=== PATIENT | male | born 1945 | race Caucasian/White ===

== ENCOUNTER 2019-03-10 12:22 | Inpatient (IN) ==
[2019-03-10] MEDS ORDERED: Famotidine 20 MG/2 ML VIAL IVP ONE (12:23)
[2019-03-10] MEDS ORDERED: Pregabalin 75 MG CAPSULE PO ONE (12:24)
[2019-03-10] MEDS ORDERED: Acetaminophen IV 1,000 MG/100 ML INFUS..BTL IVPB ONE (12:24)
[2019-03-10] MEDS ORDERED: Ringers Solution, Lactated 1,000 ML IVC SCH ×2 (12:30→17:58)
[2019-03-10] MEDS ORDERED: Albuterol 2.5 MG/3 ML NEBULIZER IH ONE (12:43)
[2019-03-10] MEDS ORDERED: CeFAZolin Syr 2,000MG/20 ML 2,000 MG/20 ML SYRINGE IVPB ONE (12:43)
[2019-03-10] MEDS ORDERED: Celecoxib 100 MG CAPSULE PO ONE (12:58)
--- NOTE | 2019-03-10 13:01 | Anesthesia Evaluation PreOp ---
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: Other (Spinal Fusion) Other Medical History: Other (Depression Osteoarthritis) Anesthesia History: No Prior Anesthetic Complications Alcohol Use: none Drug use: none Medications and Allergies Atorvastatin [Lipitor] 40 mg PO HS 08/07/15 [History] BuPROPion SR (12 HR) [Wellbutrin SR] 200 mg PO BID 08/07/15 [History] Gabapentin [Neurontin] 300 mg PO BID 08/07/15 [History] Omeprazole [PriLOSEC] 40 mg PO DAILY 11/10/18 [History] Vit C/E/Zn/Coppr/Lutein/Zeaxan [Preservision Areds 2 Softgel] 1 tab PO BID 11/10/18 [History] Fluorouracil [Fluoroplex] 1 appl TP AD 03/10/19 [History] Latanoprost [Xalatan] 1 drop BOTH EYES HS 03/10/19 [History] Naproxen Sodium [Aleve] 220 mg PO Q12H 03/10/19 [History] Trazodone HCl 100 mg PO HS 03/10/19 [History] hydroCHLOROthiazide [Hydrochlorothiazide] 25 mg PO DAILY 03/10/19 [History] Allergy/AdvReac Type Severity Reaction Status Date / Time No Known Allergies Allergy Verified 03/10/19 12:42 - Meds/Allergy Pre-op Review Medications Reviewed: Yes Allergies Reviewed: Yes Beta Blockers on Current Med List: No Anesthesia Results - Labs Laboratory Tests 03/07/19 03/07/19 03/07/19 13:10 13:10 13:10 Hgb 14.6 Hct 44.5 Plt Count 227 PT 11.1 INR 1.0 APTT 30.4 Sodium 138 Potassium 3.7 BUN 30 H Creatinine 0.88 - Imaging EKG: report reviewed (SB with Arrhythmia Rt BBB) Anesthesia Exam O2 Sat Height 1.79 m Weight 91.626 kg O2 Sat by Pulse Oximetry 97 Vital Signs Temp Pulse Resp BP Pulse Ox 97.9 F 61 18 138/78 97 03/10/19 12:38 03/10/19 12:38 03/10/19 12:38 03/10/19 12:38 03/10/19 12:38 Height: 5'11 Weight: 202 lbs NPO (# of Hours): MN Pain Scale: 0 - HEENT Pupil (Motor): Pupils equal, EOMI Mallampati: II Denture Type: Upper: Complete (Dentures) Oral Opening: Greater than 3 - PRESSURE TEST OPERATOR LOC: Oriented PRESSURE TEST OPERATOR Motor: Normal RUE, Normal LUE, Normal RLE, Normal LLE, Normal Face PRESSURE TEST OPERATOR Sensory: Normal: RUE, LUE, RLE, LLE, Face - Cardiac Rhythm: Regular Murmur: None JVD: No Carotid Bruit: No - Pulmonary Breath Sounds: bilateral Clear Respiratory Effort: Symmetrical Anesthesia Assess/Plan ASA Score: 3 (CAD HTN) Level of consciousness: Cooperative, Oriented Anesthetic Plan: General (Patient not candidate for SAB, had lumbar fusion) Reason for No Neuroaxial/Regional Block: Other (Lumbar Fusion/Refusal) Autologous Blood: No Monitoring Plan: Standard Monitors Recovery Plan: PACU (Discussed GA, agrees to proceed)
[2019-03-10] MEDS ORDERED: *HR* HYDROmorphone (PF) 1 MG/ML SYRINGE IVP PRN (13:06)
[2019-03-10] MEDS ORDERED: *HR* OxyCODONE Immed Rel 5 MG TABLET PO PRN (13:06)
[2019-03-10] MEDS ORDERED: Ondansetron 4 MG/2 ML VIAL IVP ONE (13:06)
[2019-03-10] MEDS ORDERED: Dexamethasone 4 MG/ML VIAL IVP ONE (13:06)
--- NOTE | 2019-03-10 13:45 | History & Physical Report ---
Date of Encounter: 03/10/19 Time of Encounter: 13:45 24 Hour HP Update - Instructions Instructions: If the History and Physical is less than 30 days old and was completed prior to A.M. admission and or procedure and has NOT been updated on calendar day of procedure please complete this update prior to performing procedure. - Update Patient reports changes in Medical Condition: No Changes in examination, assessment, or condition: No Changes in Medication: No Preop tests/diagnostics Reviewed: Yes Surgery Remains Indicated: Yes Consent for Planned Operative Procedure(s) Verified: Yes - Pre-Operative Checklist Preoperative Checklist Indicated: No Prophylactic Antibiotic Ordered: Yes Is VTE Prophylaxis Indicated?: Yes
[2019-03-10] MEDS ORDERED: Ondansetron 4 MG/2 ML VIAL ONE (14:41)
[2019-03-10] MEDS ORDERED: Dexamethasone 4 MG/ML VIAL ONE (14:41)
[2019-03-10] MEDS ORDERED: *HR* Propofol 200 MG/20 ML VIAL IVP ONE (14:41)
[2019-03-10] MEDS ORDERED: Lidocaine -MPF 2% 2 ML VIAL ONE (14:41)
[2019-03-10] MEDS ORDERED: *HR* FentaNYL (PF) 100 MCG/2 ML VIAL ONE ×3 (14:41→15:56)
[2019-03-10] MEDS ORDERED: Tranexamic Acid 1,000 MG/10 ML VIAL ONE (14:42)
[2019-03-10] MEDS ORDERED: Ethanol\\Acetic Acid\\Na Ace\\Ben 1,000 ML IRRIG.SOLN IR ONE (14:46)
--- NOTE | 2019-03-10 14:53 | Discharge Summary ---
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 transplanted heart: [place] heart Associated angina: angina presence unspecified Qualified Code(s): I25.10 - Atherosclerotic heart disease of [place] coronary artery without angina pectoris (5) Spondylolisthesis Priority: Secondary Status: Chronic Qualifiers: Spinal region: unspecified Qualified Code(s): M43.10 - Spondylolisthesis, site unspecified - Hospital Course Hospital course: Mr. Tompkins is a 73 year old male - Time Spent with Patient Total time spent providing and/or coordinating discharge services: - Discharge Medications Prescriptions: New Aspirin Enteric Coated [Aspirin EC] 325 mg PO BID #20 tablet. Continue BuPROPion SR (12 HR) [Wellbutrin SR] 200 mg PO BID Atorvastatin [Lipitor] 40 mg PO HS Gabapentin [Neurontin] 300 mg PO BID Omeprazole [PriLOSEC] 40 mg PO DAILY Vit C/E/Zn/Coppr/Lutein/Zeaxan [Preservision Areds 2 Softgel] 1 tab PO BID Fluorouracil [Fluoroplex] 1 appl TP AD hydroCHLOROthiazide [Hydrochlorothiazide] 25 mg PO DAILY Latanoprost [Xalatan] 1 drop BOTH EYES HS Naproxen Sodium [Aleve] 220 mg PO Q12H Trazodone HCl 100 mg PO HS Home Medications: Atorvastatin [Lipitor] 40 mg PO HS 08/07/15 [History] BuPROPion SR (12 HR) [Wellbutrin SR] 200 mg PO BID 08/07/15 [History] Gabapentin [Neurontin] 300 mg PO BID 08/07/15 [History] Omeprazole [PriLOSEC] 40 mg PO DAILY 11/10/18 [History] Vit C/E/Zn/Coppr/Lutein/Zeaxan [Preservision Areds 2 Softgel] 1 tab PO BID 11/10/18 [History] Aspirin Enteric Coated [Aspirin EC] 325 mg PO BID #20 tablet. 03/10/19 [Rx] Fluorouracil [Fluoroplex] 1 appl TP AD 03/10/19 [History] Latanoprost [Xalatan] 1 drop BOTH EYES HS 03/10/19 [History] Naproxen Sodium [Aleve] 220 mg PO Q12H 03/10/19 [History] Trazodone HCl 100 mg PO HS 03/10/19 [History] hydroCHLOROthiazide [Hydrochlorothiazide] 25 mg PO DAILY 03/10/19 [History] Allergies/Adverse Reactions: Allergy/AdvReac Type Severity Reaction Status Date / Time No Known Allergies Allergy Verified 03/10/19 12:42 Primary care physician: Dee Guillermo CNP - Patient Status Disposition: Home Health Service Condition: Good - Discharge Instructions Follow Up With: Nathaly Ny PAC [Physician Friend Of The Court] - 03/16/19 9:00 am Donn Madsen MD [Partnered Physician] - Dee Guillermo CNP [Primary Care Provider] - Additional Instructions: Discharge Instructions: Total Hip Replacement Please call [facility] ([phone]), your Primary Care Physician, or report to the Emergency Room if you have any of the following symptoms: Nausea, vomiting, fever greater that 101.5, swelling, chest pain, shortness of breath, increased pain/redness/drainage/odor for your incision site, numbness/tingling, or any other concerning symptoms. ACTIVITY:Weight-bearing as tolerated for 8 weeks with hip dislocation precautions that physical therapy taught you. You may progress as tolerated under the guidance of your physical therapist. You do not need to sleep with a pillow between your legs. You can also seep on the operative side or on your stomach. Incentive Spirometer 10 times an hour. MEDICATIONS: Upon discharge resume your home medications. Take all the medications as prescribed. Take a stool softener if taking narcotic pain medications. Stool softeners are only effective if you drink enough fluids. Drink 6-8 glass of water or fluids a day, unless this is not allowed for another health problem. Despite using stool softeners, if you haven't had a bowel movement in 3 days, please switch to a gentle laxative. Gentle laxatives are sold over the counter. You should have a bowel movement within 24 hours, if not call the office. You will be discharged from the hospital with a prescription for pain medication. You are encouraged to decrease the use of narcotic pain medication as tolerated. Should you require a refill, please call the office. [facility] prescribes narcotic pain medication for only 4-6 weeks after surgery. If you require pain medication beyond this time period, you may be referred to your Primary Care Physician or to the Pain Clinic for further evaluation. Plan ahead for refills on pain medication as many narcotics either need to be picked up at the office or mailed. It is best to call 48-72 hours in advance of needing a prescription refill so you don't run out of medication. To help control the post-operative pain, you may take NSAIDs (Aleve,Advil, Motrin, ibuprofen, naprosyn) or Tylenol as prescribed on the bottle in addition to the pain medication. ANTICOAGULATION (blood thinners): Continue your Aspirin, Lovenox or Coumadin as prescribed to help prevent a blood clot in the leg or in the lungs. As long as your incision remains dry and you tolerate the NSAIDs (Aleve, Advil, Motrin, Ibuprofen, Naprosyn), it is OK to use the NSAIDS while you are taking your anticoagulation medication. Should your incision start to drain, stop the NSAID and contact our office. Common symptoms of blood clot in the legs include: localized pain, swelling, calf tenderness, redness or discoloration of the skin. Blood clot in the lung symptoms include: shortness of breath, rapid pulse, sweating, and chest pain that worsens with deep breathing, coughing up blood, lightheadedness, feelings of anxiety. If you experience any of these symptoms notify your physician immediately, go to the emergency room, or if having trouble breathing, call 911. WOUND CARE: Leave the dressing on for 7 to 10days. You may change the dressing if it is saturated greater than 50%. Do not get the dressing wet at anytime. Wash your hands with antibacterial soap, rinse and dry prior to any wound care. If you have robb the visiting nurse or rehab facility can remove the stapes 10-14 days after surgery and place steri-strips across the wound. Leave the steri-strips in place until they fall off on their own. You may let water from the shower run on top of the steri-strips. If you do not have a visiting nurse or rehab facility, you will need to return to the office at 10-14 days for the robb to be removed. If you have itching or redness around the dressing call the office. FOLLOW-UP: Please follow up with your surgeon in the orthopedic clinic in 6 weeks from the day of surgery. If you have robb that need to be removed, you will need to come back to the office in 10-14 days from the day of surgery. 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 Priority: Primary Status: Acute (3) Glaucoma Priority: Secondary Status: Chronic Qualifiers: Glaucoma type: unspecified Laterality: unspecified laterality Qualified Code(s): H40.9 - Unspecified glaucoma (4) Macular degeneration Priority: Secondary Status: Chronic Qualifiers: Macular degeneration type: unspecified type Eye laterality: unspecified Qualified Code(s): H35.30 - Unspecified macular degeneration (5) Depression Priority: Secondary Status: Acute Qualifiers: Depression Type: unspecified Qualified Code(s): F32.9 - Major depressive disorder, single episode, unspecified (6) Recently quit using tobacco Priority: Secondary Status: Acute (7) Hyperlipidemia Priority: Secondary Status: Chronic Qualifiers: Hyperlipidemia type: unspecified Qualified Code(s): E78.5 - Hyperlipidemia, unspecified (8) Hypertension Priority: Secondary Status: Chronic Qualifiers: Hypertension type: unspecified secondary hypertension Qualified Code(s): I15.9 - Secondary hypertension, unspecified; I15 - Secondary hypertension (9) Spondylolisthesis Priority: Secondary Status: Chronic Qualifiers: Spinal region: unspecified Qualified Code(s): M43.10 - Spondylolisthesis, site unspecified - Hospital Course Hospital course: Mr. Tompkins is a 73 year old male status postleft THR robotic 03/10/19. He participated in therapy and had an uneventful hospital course. He was evaluated by Dr. Madsen on day of discharge and deemed stable for discharge at that time. - Time Spent with Patient Total time spent providing and/or coordinating discharge services: Date of admission: 03/10/19 Primary care physician: Dee Guillermo CNP Discharging clinician: Donn Madsen Anticipated date of discharge: 03/13/19 Labs on day of discharge: Labs from last 24 hours 03/10/19 16:51 Hgb 13.5 Hct 41.3 Preliminary micro results at discharge 03/10/19 15:35 Wound Culture - Preliminary Left Hip Culture is incubating. 03/10/19 15:35 Anaerobic Culture - Preliminary Left Hip Culture is incubating. - Impressions Hip X-Ray 03/10/19 12:15 IMPRESSION: No evident complication status post left total hip arthroplasty. D/ / 03/10/2019 20:57:10 Dionisio Basurto MD / [email or web address] Interpreting Provider: Dionisio Basurto MD - Patient Status Functional capacity at discharge: uses cane/walker Overall status at discharge: patient is back to baseline - Diet and Activity Activity: ambulate only with your walker, as per physical therapy Diet: advance to your usual diet
[2019-03-10] MEDS ORDERED: *HR* PHENYLEPHRINE 1,000 MCG/10 ML SYRINGE IVP ONE ×2 (15:35→15:36)
--- NOTE | 2019-03-10 16:18 | Orthopedic Operative Note ---
Date of procedure: 03/10/19 Pre-op diagnosis: Left hip femoral neck nonunion Post-op diagnosis: same Procedure: Procedure: Left Total Hip Replacment robotic-assisted Estimated blood loss: 200 cc Hardware: Metal and polyethylene replacement. Sara DM Cup: 60 cup Femoral size 10 stem Head: Us 12 head with Claudia Procedural Notes: Femoral neck nonunion, procedure performed with robotic assistance. Severe arthritis right hip femoral neck fracture left hip nonunion 3 mm longer on the left as compared to right preoperatively as measured by CT scan Operative procedure: The patient was brought to the operating room and placed on the operating room table. After general anesthesia was administered the patient was placed in the lateral decubitus position with the operative leg up. All pressure points were padded appropriately and the head was stabilized in the neutral position. The operative extremity was prepped and draped in the sterile surgical fashion patient received IV antibiotic prior to skin incision. 3 Steinmann pins were placed in the iliac crest 3 cm proximal to the anterior superior iliac spine this was for the robotic-assisted sensor. This was done through a small 2 cm incision. A standard posterior approach is made to the operative hip, the incision was made through the skin and subcutaneous tissue hemostasis was obtained with Bovie cautery. Using careful sharp dissection the fascia was identified and incised exposing the external rotators. The greater trochanter was marked, and length was measured at this time utilizing robotic assistance. The external rotators were released off the greater trochanter and tagged with #2 FiberWire suture. The capsule was T'd open and the hip was brought into internal rotation. Patient had a well developed nonunion the femoral neck cut was made at the justine ropriate level, the femoral head was removed. His was all passed off as specimen. An anterior capsulotomy was performed for the anterior retractor. Soft tissues removed from the acetabulum. The acetabulum reference point was confirmed. The acetabulum was then mapped with robotic assistance. Based on the preoperative plan the acetabulum was reamed in one step with a 60 reamer. The 60 acetabulum was impacted with robotic assistance and 40 degrees of abduction and 13 degrees of anteversion. The hip was brought back in to internal rotation and prepared with the kickboxing instructor followed by the canal finder followed by the reaming process to a size 9/10 broaching process in 20 degrees anteversion. It was broached up to the appropriate size 10 Trial reduction revealed leg lengths close to normal. The femoral implant was impacted in place in 20 degrees of anteversion. Trial reduction found the hip to be stable with 12 head and Claudia. The trials were removed and the real implants were impacted in place. The hip was reduced, patient had robotic confirmed leg length of 30 mm longer than the contralateral side this was to be expected based on the severe arthritic changes right hip wit h proximal femoral migration. The hip had excellent stability with forward flexion to 90 degrees adduction of 30 degrees and internal rotation of 60 degrees. The hip had no shuck. The hip sat with an antibacterial solution. It was irrigated out with 2 L of pulse irrigation. The Steinmann pins were removed. The hip was closed by the PA. The deep tissue was irrigated and closed deep with #1 PDS suture superficially with 0 PDS suture and skin was closed with Dermabond and zip tie. The patient was placed in a sterile dressing and abduction pillow. The patient was extubated and transferred to the recovery room in stable condition. Anesthesia: GETA Surgeon: Donn Madsen Was there an assistant pressman present: No Estimated blood loss (cc): 200 Condition: stable Disposition: PACU
--- NOTE | 2019-03-10 16:56 | Anesthesia Evaluation Post Op ---
Date of Encounter: 03/10/19 Time of Encounter: 16:55 - Vital Signs Vital Signs: Vital Signs - Last 8 Hours Temp Pulse Resp BP Pulse Ox 03/10/19 16:28 98.2 F 66 16 144/78 99 03/10/19 12:38 97.9 F 61 18 138/78 97 Intake and Output 03/10/19 03/10/19 03/10/19 07:59 15:59 23:59 Output Total 200 / 200 Balance -200 / -200 Output: Estimated Blood Loss 200 / 200 Other: Weight 91.626 kg Patient Weight 03/10/19 23:59 Weight 91.626 kg - Lungs Lungs: Clear Ascult./Percussion - Airway Airway: Non-obstructed - Cardiovascular Regular Rate, Baseline Rhythm - Mental Status Mental Status: Alert & Oriented, Answers Appropriately - Pain Pain Scale: 3 (pain meds given per pacu ) Pain Scale used: Numeric (1 - 10) - Nausea Vomiting Nausea Vomiting: Not Present - Hydration Hydration: Tolerates oral liquids - Discharge PostOp Status: Transfer Patient to floor
[2019-03-10 17:02] LABS: Hematocrit 41.3 % (37.5-50.1); Hemoglobin 13.5 g/dL (12.9-16.9)
--- NOTE | 2019-03-10 17:32 | Physician Discharge Referral ---
Home Health/Hosp Referral Info Transfer to: Home Health Attending Provider: Dr. 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 For more information, call the [place] Tobacco Quit Line at 1-601-ICEH-NOW. - Diet/Nutrition Diet/Nutrition Orders: Regular - Activity Activity Orders: Up ad vincent, Ambulate, Chair - Services Needed Following services are medically necessary services: Nursing, Home Health Aide, Physical Therapy, Occupational Therapy Home Care Orders: Opsite dressing, leave intact until first post-operative visit. If dressing becomes >50% saturated, contact office, remove dressing and place appropriate dressing in its place. Do not allow for dressing to get wet. Zipline/Fair[place] in place, plan to remove at post-operative day #14-16. Total Joint Precautions x 6 weeks Apply cold therapy wrap 3-6x/day for 20 minutes at a time. Encourage ambulation throughout the day Use Incentive spirometer 10x/hour. Elevate affected extremity above heart as tolerated. Brace: Wear hip abductor brace at night x 6 weeks. - Transfer Medications Prescriptions: OxyCODONE Immed Rel [Roxicodone 5 MG] 5 mg PO Q6HR PRN 5 Days #20 tablet PRN Reason: Pain Aspirin Enteric Coated [Aspirin EC] 325 mg PO BID #20 tablet. Home Medications: Atorvastatin [Lipitor] 40 mg PO HS 08/07/15 [History] BuPROPion SR (12 HR) [Wellbutrin SR] 200 mg PO BID 08/07/15 [History] Gabapentin [Neurontin] 300 mg PO BID 08/07/15 [History] Omeprazole [PriLOSEC] 40 mg PO DAILY 11/10/18 [History] Vit C/E/Zn/Coppr/Lutein/Zeaxan [Preservision Areds 2 Softgel] 1 tab PO BID 11/10/18 [History] Aspirin Enteric Coated [Aspirin EC] 325 mg PO BID #20 tablet. 03/10/19 [Rx] Fluorouracil [Fluoroplex] 1 appl TP AD 03/10/19 [History] Latanoprost [Xalatan] 1 drop BOTH EYES HS 03/10/19 [History] Naproxen Sodium [Aleve] 220 mg PO Q12H 03/10/19 [History] OxyCODONE Immed Rel [Roxicodone 5 MG] 5 mg PO Q6HR PRN 5 Days #20 tablet 03/10/19 [Rx] Trazodone HCl 100 mg PO HS 03/10/19 [History] hydroCHLOROthiazide [Hydrochlorothiazide] 25 mg PO DAILY 03/10/19 [History] Allergies/Adverse Reactions: Allergy/AdvReac Type Severity Reaction Status Date / Time No Known Allergies Allergy Verified 03/10/19 12:42 Certification: Further, I certify that my clinical findings support that this patient is homebound (i.e. absences from home require considerable and taxing effort and are for medical reasons or advent services or infrequently or short duration when for other reasons) because: Homebound Reason: Post-surgery restriction and or conditions limit ability to leave home Attestation: My signature below is to certify that this patient is under my care and that I, or nurse practitioner, or a physician administrative assistant coordinator working with me, has a [id number] encounter with this patient.
[2019-03-10] MEDS ORDERED: MOM Conc 10 ML UD.LIQ PO PRN (17:58)
[2019-03-10] MEDS ORDERED: Naloxone 0.4 MG/ML INJ IVP PRN (17:58)
[2019-03-10] MEDS ORDERED: Sennosides 8.6 MG TABLET PO PRN (17:58)
[2019-03-10] MEDS ORDERED: Temazepam 15 MG CAPSULE PO PRN (17:58)
[2019-03-10] MEDS ORDERED: Ondansetron 4 MG/2 ML VIAL IVP PRN (17:58)
[2019-03-10] MEDS ORDERED: *HR* Promethazine 25 MG/ML VIAL IVP PRN (17:58)
[2019-03-10] MEDS ORDERED: *HR* Enoxaparin 30 MG/0.3 ML SYRINGE SQ SCH (18:00)
[2019-03-10] MEDS: HYDROcodone BIT/Homatropine 5 MG TABLET PO PRN (18:30)
[2019-03-10] MEDS: Ascorbic Acid 500 MG TABLET PO SCH (19:44)
[2019-03-10] MEDS: *HR* Enoxaparin 30 MG/0.3 ML SYRINGE SQ SCH (19:44)
[2019-03-10] MEDS: BuPROPion SR (12 HR) 100 MG TABLET PO SCH (21:17)
[2019-03-10] MEDS: Gabapentin 300 MG CAPSULE PO SCH (21:17)
[2019-03-10] MEDS: traZODone 50 MG TABLET PO SCH (22:18)
[2019-03-10] MEDS: traMADol 50 MG TABLET PO PRN (22:21)
[2019-03-11] MEDS: Latanoprost 2.5 ML BOTTLE BOTH EYES SCH ×2 (00:03→20:03)
[2019-03-11 01:32] LABS: Basophils % 0.2 %; Eosinophils % 0.1 %; Hematocrit 39.1 % (37.5-50.1); Hemoglobin 12.9 g/dL (12.9-16.9); Immature Granulocytes % 0.6 % (0-4); Lymphocytes # 1.2 K/mcL (0.6-4.6); Lymphocytes % 8.3 %; Mean Corpuscular Hemoglobin 31.8 pg (28.0-33.3); Mean Corpuscular Volume 96.3 fL (83.0-100.0); Mean Platelet Volume 10.2 fL (9.4-12.4); Monocytes # 1.2 K/mcL (0.0-1.3); Monocytes % 8.7 %; Neutrophils # 11.5 K/mcL (1.6-8.9); Platelet Count 244 K/mcL (140-400); Red Blood Count 4.06 M/mcL (4.19-5.50); Red Cell Distribution Width 14.6 % (11.5-14.5); Segmented Neutrophils % 82.1 %
[2019-03-11 01:51] LABS: BUN/Creatinine Ratio 29 (6-26); Blood Urea Nitrogen 30 mg/dL (8-23); Calcium 8.8 mg/dL (8.6-10.3); Carbon Dioxide 26 mEq/L (23-29); Chloride 107 mEq/L (98-107); Glucose 104 mg/dL (70-105); Osmolality,Calculated 294 (280-300); Potassium 3.8 mEq/L (3.5-5.1); Sodium 139 mEq/L (136-145); eGFR For Non-African Americans > 60 (> 60)
[2019-03-11] MEDS: *HR* Enoxaparin 30 MG/0.3 ML SYRINGE SQ SCH ×2 (05:15→17:14)
[2019-03-11] MEDS: HYDROcodone BIT/Homatropine 5 MG TABLET PO PRN ×2 (06:07→13:51)
[2019-03-11] MEDS: hydroCHLOROthiazide 25 MG TABLET PO SCH (09:30)
[2019-03-11] MEDS: Gabapentin 300 MG CAPSULE PO SCH ×2 (09:30→20:03)
[2019-03-11] MEDS: Ascorbic Acid 500 MG TABLET PO SCH ×2 (09:30→16:21)
[2019-03-11] MEDS: BuPROPion SR (12 HR) 100 MG TABLET PO SCH ×2 (09:30→20:02)
[2019-03-11] MEDS: Multivit/Ca/Min/Fe/FA 1 TAB TABLET PO SCH (09:30)
[2019-03-11] MEDS: traMADol 50 MG TABLET PO PRN ×2 (09:36→16:22)
[2019-03-11] MEDS: *HR* OxyCODONE Immed Rel 5 MG TABLET PO PRN ×2 (19:04→23:47)
[2019-03-11] MEDS: traZODone 50 MG TABLET PO SCH (20:03)
[2019-03-12 03:59] LABS: Basophils % 0.3 %; Eosinophils # 0.2 K/mcL (0.0-0.6); Eosinophils % 1.9 %; Hematocrit 35.6 % (37.5-50.1); Hemoglobin 11.7 g/dL (12.9-16.9); Immature Granulocytes % 0.8 % (0-4); Lymphocytes % 19.5 %; Mean Corpuscular HGB Conc 32.9 g/dL (31.6-35.5); Mean Corpuscular Hemoglobin 31.7 pg (28.0-33.3); Mean Corpuscular Volume 96.5 fL (83.0-100.0); Mean Platelet Volume 9.9 fL (9.4-12.4); Monocytes # 1.5 K/mcL (0.0-1.3); Monocytes % 14.5 %; Neutrophils # 6.5 K/mcL (1.6-8.9); Platelet Count 213 K/mcL (140-400); Red Blood Count 3.69 M/mcL (4.19-5.50); Red Cell Distribution Width 14.5 % (11.5-14.5)
[2019-03-12 04:16] LABS: BUN/Creatinine Ratio 31 (6-26); Blood Urea Nitrogen 26 mg/dL (8-23); Calcium 8.4 mg/dL (8.6-10.3); Carbon Dioxide 25 mEq/L (23-29); Chloride 104 mEq/L (98-107); Glucose 115 mg/dL (70-105); Osmolality,Calculated 288 (280-300); Potassium 3.5 mEq/L (3.5-5.1); Sodium 136 mEq/L (136-145); eGFR For Non-African Americans > 60 (> 60)
[2019-03-12] MEDS: *HR* Enoxaparin 30 MG/0.3 ML SYRINGE SQ SCH ×2 (05:44→18:03)
[2019-03-12] MEDS: *HR* OxyCODONE Immed Rel 5 MG TABLET PO PRN ×4 (06:23→20:41)
[2019-03-12] MEDS: Gabapentin 300 MG CAPSULE PO SCH ×2 (08:23→20:02)
[2019-03-12] MEDS: BuPROPion SR (12 HR) 100 MG TABLET PO SCH ×2 (08:24→20:02)
[2019-03-12] MEDS: Ascorbic Acid 500 MG TABLET PO SCH ×2 (08:24→18:03)
[2019-03-12] MEDS: Multivit/Ca/Min/Fe/FA 1 TAB TABLET PO SCH (08:24)
[2019-03-12] MEDS: hydroCHLOROthiazide 25 MG TABLET PO SCH (08:25)
[2019-03-12] MEDS: traZODone 50 MG TABLET PO SCH (20:02)
[2019-03-12] MEDS: Latanoprost 2.5 ML BOTTLE BOTH EYES SCH (20:17)
--- NOTE | 2019-03-12 23:21 | Orthopedics Progress Note ---
Date of Encounter: 03/11/19 Time of Encounter: 09:15 Subjective Principal diagnosis: Status post left total hip arthroplasty Interval history: The patient is without complaints. Afebrile vital signs are stable. Dressing is clean dry and intact. Neurovascularly intact with regard to bilateral lower extremities. Assessment :stable. Plan mobilize ,continue analgesics, di scharge planning. Objective Vital signs: Vital Signs Temp Pulse Resp BP Pulse Ox 03/12/19 22:50 98.5 F 78 16 120/67 92 03/12/19 19:05 99.6 F 88 16 125/72 93 03/12/19 14:40 98.4 F 86 18 123/69 96 03/12/19 06:30 98.3 F 78 16 128/64 95 03/12/19 05:07 98.0 F 76 16 122/61 93 03/11/19 23:52 97.4 F L 78 16 114/55 93 Intake and Output 03/12/19 03/12/19 03/12/19 07:59 15:59 23:59 Intake Total 150 / 150 730 / 730 550 / 550 Output Total 325 / 325 350 / 350 500 / 500 Balance -175 / -175 380 / 380 50 / 50 Intake: IV Fluids 100 / 100 Oral 50 / 50 730 / 730 550 / 550 Output: Urine 325 / 325 350 / 350 500 / 500 Other: Meal Lunch Percent of Meal Consumed 90% # Voids 1 1 Weight 92.1 kg Patient Weight 03/12/19 23:59 Weight 92.1 kg - Labs CBC & BMP: 03/12/19 03:43 03/12/19 03:43 Labs: Abnormal lab results RBC 3.69 M/mcL (4.19-5.50) L 03/12/19 03:43 Hgb 11.7 g/dL (12.9-16.9) L 03/12/19 03:43 Hct 35.6 % (37.5-50.1) L 03/12/19 03:43 Monocytes # 1.5 K/mcL (0.0-1.3) H 03/12/19 03:43 BUN 26 mg/dL (8-23) H 03/12/19 03:43 BUN/Creatinine Ratio 31 (6-26) H 03/12/19 03:43 Glucose 115 mg/dL (70-105) H 03/12/19 03:43 POC Glucose 102 mg/dL (70-99) H 03/10/19 23:48 Calcium 8.4 mg/dL (8.6-10.3) L 03/12/19 03:43 - VTE Documentation of Mechanical Device: Venous foot pump, device Consult Discharge Plan - Plan Additional Instructions: Discharge Instructions: Total Hip Replacement Please call [facility] ([phone]), your Primary Care Physician, or report to the Emergency Room if you have any of the following symptoms: Nausea, vomiting, fever greater that 101.5, swelling, chest pain, shortness of breath, increased pain/redness/drainage/odor for your incision site, numbness/tingling, or any other concerning symptoms. ACTIVITY:Weight-bearing as tolerated for 8 weeks with hip dislocation precautions that physical therapy taught you. You may progress as tolerated under the guidance of your physical therapist. You do not need to sleep with a pillow between your legs. You can also seep on the operative side or on your stomach. Incentive Spirometer 10 times an hour. MEDICATIONS: Upon discharge resume your home medications. Take all the medi cations as prescribed. Take a stool softener if taking narcotic pain medications. Stool softeners are only effective if you drink enough fluids. Drink 6-8 glass of water or fluids a day, unless this is not allowed for another health problem. Despite using stool softeners, if you haven't had a bowel movement in 3 days, please switch to a gentle laxative. Gentle laxatives are sold over the counter. You should have a bowel movement within 24 hours, if not call the office. You will be discharged from the hospital with a prescription for pain medication. You are encouraged to decrease the use of narcotic pain medication as tolerated. Should you require a refill, please call the office. [facility] prescribes narcotic pain medication for only 4-6 weeks after surgery. If you require pain medication beyond this time period, you may be referred to your Primary Care Physician or to the Pain Clinic for further evaluation. Plan ahead for refills on pain medication as many narcotics either need to be picked up at the office or mailed. It is best to call 48-72 hours in advance of needing a prescription refill so you don't run out of medication. To help control the post-operative pain, you may take NSAIDs (Aleve,Advil, Motrin, ibuprofen, naprosyn) or Tylenol as prescribed on the bottle in addition to the pain medication. ANTICOAGULATION (blood thinners): Continue your Aspirin, Lovenox or Coumadin as prescribed to help prevent a blood clot in the leg or in the lungs. As long as your incision remains dry and you tolerate the NSAIDs (Aleve, Advil, Motrin, Ibuprofen, Naprosyn), it is OK to use the NSAIDS while you are taking your anticoagulation medication. Should your incision start to drain, stop the NSAID and contact our office. Common symptoms of blood clot in the legs include: localized pain, swelling, calf tenderness, redness or discoloration of the skin. Blood clot in the lung symptoms include: shortness of breath, rapid pulse, sweating, and chest pain that worsens with deep breathing, coughing up blood, lightheadedness, feelings of anxiety. If you experience any of these symptoms notify your physician immediately, go to the emergency room, or if having trouble breathing, call 911. WOUND CARE: Leave the dressing on for 7 to 10days. You may change the dressing if it is saturated greater than 50%. Do not get the dressing wet at anytime. Wash your hands with antibacterial soap, rinse and dry prior to any wound care. If you have robb the visiting nurse or rehab facility can remove the stapes 10-14 days after surgery and place steri-strips across the wound. Leave the steri-strips in place until they fall off on their own. You may let water from the shower run on top of the steri-strips. If you do not have a visiting nurse or rehab facility, you will need to return to the office at 10-14 days for the robb to be removed. If you have itching or redness around the dressing call the office. FOLLOW-UP: Please follow up with your surgeon in the orthopedic clinic in 6 weeks from the day of surgery. If you have robb that need to be removed, you will need to come back to the office in 10-14 days from the day of surgery. Referrals: Nathaly Ny PAC [Physician Lodge Attendant] - 03/16/19 9:00 am Donn Madsen MD [Partnered Physician] - Eagle,Dee L, TWINE REELING MACHINE OPERATOR [Primary Care Provider] -
[2019-03-13] MEDS: *HR* Enoxaparin 30 MG/0.3 ML SYRINGE SQ SCH (05:28)
[2019-03-13] MEDS: HYDROcodone BIT/Homatropine 5 MG TABLET PO PRN (06:50)
[2019-03-13 07:35] VITALS: BP 103/63
--- NOTE | 2019-03-13 08:00 | Orthopedics Progress Note ---
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 transplanted heart: [place] heart Associated angina: angina presence unspecified Qualified Code(s): I25.10 - Atherosclerotic heart disease of [place] coronary artery without angina pectoris (5) Spondylolisthesis Current Visit: No Status: Chronic Qualifiers: Spinal region: unspecified Qualified Code(s): M43.10 - Spondylolisthesis, site unspecified Subjective Principal diagnosis: Status post left total hip arthroplasty Interval history: Patient was seen this morning doing well without complaints. Afebrile vital signs stable. Operative extremity: Neurovascularly intact Dressing clean dry and intact Calves nontender Assessment and plan: Continue with postoperative care Plan for discharge today Objective Vital signs: Vital Signs Temp Pulse Resp BP Pulse Ox 03/13/19 07:34 98.3 F 83 15 103/63 92 03/12/19 22:50 98.5 F 78 16 120/67 92 03/12/19 19:05 99.6 F 88 16 125/72 93 03/12/19 14:40 98.4 F 86 18 123/69 96 Intake and Output 03/12/19 03/13/19 03/13/19 23:59 07:59 15:59 Intake Total 550 / 550 50 / 50 Output Total 500 / 500 350 / 350 Balance 50 / 50 -300 / -300 Intake: Oral 550 / 550 50 / 50 Output: Urine 500 / 500 350 / 350 Other: # Voids 1 - Labs CBC & BMP: 03/12/19 03:43 03/12/19 03:43 Labs: Abnormal lab results RBC 3.69 M/mcL (4.19-5.50) L 03/12/19 03:43 Hgb 11.7 g/dL (12.9-16.9) L 03/12/19 03:43 Hct 35.6 % (37.5-50.1) L 03/12/19 03:43 Monocytes # 1.5 K/mcL (0.0-1.3) H 03/12/19 03:43 BUN 26 mg/dL (8-23) H 03/12/19 03:43 BUN/Creatinine Ratio 31 (6-26) H 03/12/19 03:43 Glucose 115 mg/dL (70-105) H 03/12/19 03:43 POC Glucose 102 mg/dL (70-99) H 03/10/19 23:48 Calcium 8.4 mg/dL (8.6-10.3) L 03/12/19 03:43 - VTE Documentation of Mechanical Device: Venous foot pump, device Consult Discharge Plan - Plan Additional Instructions: Discharge Instructions: Total Hip Replacement Please call [facility] ([phone]), your Primary Care Physician, or report to the Emergency Room if you have any of the following symptoms: Nausea, vomiting, fever greater that 101.5, swelling, chest pain, shortness of breath, increased pain/redness/drainage/odor for your incision site, numbness/tingling, or any other concerning symptoms. ACTIVITY:Weight-bearing as tolerated for 8 weeks with hip dislocation precautions that physical therapy taught you. You may progress as tolerated under the guidance of your physical therapist. You do not need to sleep with a pillow between your legs. You can also seep on the operative side or on your stomach. Incentive Spirometer 10 times an hour. MEDICATIONS: Upon discharge resume your home medications. Take all the medications as prescribed. Take a stool softener if taking narcotic pain medications. Stool softeners are only effective if you drink enough fluids. Drink 6-8 glass of water or fluids a day, unless this is not allowed for another health problem. Despite using stool softeners, if you haven't had a bowel movement in 3 days, please switch to a gentle laxative. Gentle laxatives are s old over the counter. You should have a bowel movement within 24 hours, if not call the office. You will be discharged from the hospital with a prescription for pain medication. You are encouraged to decrease the use of narcotic pain medication as tolerated. Should you require a refill, please call the office. [facility] prescribes narcotic pain medication for only 4-6 weeks after surgery. If you require pain medication beyond this time period, you may be referred to your Primary Care Physician or to the Pain Clinic for further evaluation. Plan ahead for refills on pain medication as many narcotics either need to be picked up at the office or mailed. It is best to call 48-72 hours in advance of needing a prescription refill so you don't run out of medication. To help control the post-operative pain, you may take NSAIDs (Aleve,Advil, Motrin, ibuprofen, naprosyn) or Tylenol as prescribed on the bottle in addition to the pain medication. ANTICOAGULATION (blood thinners): Continue your Aspirin, Lovenox or Coumadin as prescribed to help prevent a blood clot in the leg or in the lungs. As long as your incision remains dry and you tolerate the NSAIDs (Aleve, Advil, Motrin, Ibuprofen, Naprosyn), it is OK to use the NSAIDS while you are taking your anticoagulation medication. Should your incision start to drain, stop the NSAID and contact our office. Common symptoms of blood clot in the legs include: localized pain, swelling, calf tenderness, redness or discoloration of the skin. Blood clot in the lung symptoms include: shortness of breath, rapid pulse, sweating, and chest pain that worsens with deep breathing, coughing up blood, lightheadedness, feelings of anxiety. If you experience any of these symptoms notify your physician immediately, go to the emergency room, or if having trouble breathing, call 911. WOUND CARE: Leave the dressing on for 7 to 10days. You may change the dressing if it is saturated greater than 50%. Do not get the dressing wet at anytime. Wash your hands with antibacterial soap, rinse and dry prior to any wound care. If you have robb the visiting nurse or rehab facility can remove the stapes 10-14 days after surgery [address] steri-strips across the wound. Leave the steri-strips in place until they fall off on their own. You may let water from the shower run on top of the steri-strips. If you do not have a visiting nurse or rehab facility, you will need to return to the office at 10-14 days for the robb to be removed. If you have itching or redness around the dressing call the office. FOLLOW-UP: Please follow up with your surgeon in the orthopedic clinic in 6 weeks from the day of surgery. If you have robb that need to be removed, you will need to come back to the office in 10-14 days from the day of surgery. Referrals: Nathaly Ny PAC [Physician Adult Daycare Coordinator] - 03/16/19 9:00 am Donn Madsen MD [Partnered Physician] - Dee Guillermo CNP [Primary Care Provider] -
[2019-03-13] MEDS: Gabapentin 300 MG CAPSULE PO SCH (09:47)
[2019-03-13] MEDS: BuPROPion SR (12 HR) 100 MG TABLET PO SCH (09:47)
[2019-03-13] MEDS: Multivit/Ca/Min/Fe/FA 1 TAB TABLET PO SCH (09:47)
[2019-03-13] MEDS: Ascorbic Acid 500 MG TABLET PO SCH (09:48)
[2019-03-13] MEDS: hydroCHLOROthiazide 25 MG TABLET PO SCH (09:48)
[2019-03-13] MEDS: *HR* OxyCODONE Immed Rel 5 MG TABLET PO PRN (09:48)
== END 2019-03-13 11:38 | disposition home health service (06) | DRG 470 ==
LOC: SAMDAY 12:22 → 3NENU 17:58
PROVIDERS: ADMIT Orthopaedic Surgery; ATTEND Orthopaedic Surgery

== ENCOUNTER 2020-05-31 06:10 | Observation (INO) ==
[2020-05-31] MEDS ORDERED: Ringers Solution, Lactated 1,000 ML IVC SCH ×2 (07:00→11:36)
[2020-05-31] MEDS ORDERED: Acetaminophen IV 1,000 MG/100 ML BAG IVPB ONE (07:05)
[2020-05-31] MEDS ORDERED: Famotidine 20 MG/2 ML VIAL IVP ONE (07:05)
[2020-05-31] MEDS ORDERED: *HR* OxyCODONE Immed Rel 5 MG TABLET PO PRN (07:55)
[2020-05-31] MEDS ORDERED: *HR* Labetalol 20 MG/4 ML SYRINGE IVP PRN (07:55)
[2020-05-31] MEDS ORDERED: *HR* HYDROmorphone PF 0.5 MG/0.5 ML SYRINGE IVP PRN (07:55)
[2020-05-31] MEDS ORDERED: Ondansetron 4 MG/2 ML VIAL IVP ONE (07:55)
[2020-05-31] MEDS ORDERED: Ethanol\\Acetic Acid\\Na Ace\\Ben 1,000 ML IRRIG.SOLN IR ONE (08:06)
[2020-05-31] MEDS ORDERED: Vancomycin 1,000 MG VIAL ONE (08:06)
[2020-05-31] MEDS ORDERED: Tranexamic Acid 1,000 MG/10 ML VIAL ONE (08:10)
[2020-05-31] MEDS ORDERED: Lidocaine -MPF 4% 5 ML AMPUL ONE (08:10)
[2020-05-31] MEDS ORDERED: *HR* Succinylcholine 200 MG/10 ML VIAL IVP ONE (08:10)
[2020-05-31] MEDS ORDERED: *HR* Rocuronium Bromide 50 MG/5 ML VIAL ONE (08:10)
[2020-05-31] MEDS ORDERED: Dexamethasone 4 MG/ML VIAL ONE (08:10)
[2020-05-31] MEDS ORDERED: Lidocaine -MPF 2% 2 ML VIAL ONE (08:10)
[2020-05-31] MEDS ORDERED: Ondansetron 4 MG/2 ML VIAL ONE (08:10)
[2020-05-31] MEDS ORDERED: *HR* FentaNYL (PF) 100 MCG/2 ML VIAL ONE ×2 (08:14→08:20)
[2020-05-31] MEDS ORDERED: *HR* HYDROMORPHONE 2 MG/ML VIAL ONE (08:14)
[2020-05-31] MEDS ORDERED: *HR* Midazolam HCl 2 MG/2 ML VIAL ONE (08:20)
[2020-05-31] MEDS ORDERED: *HR* Propofol 200 MG/20 ML VIAL IVP ONE (08:21)
[2020-05-31] MEDS ORDERED: *HR* Labetalol 20 MG/4 ML SYRINGE IVP ONE (09:38)
[2020-05-31] MEDS ORDERED: Ketorolac 30 MG/ML VIAL ONE (09:38)
[2020-05-31 11:19] LABS: Hematocrit 40.2 % (37.5-50.1); Hemoglobin 13.2 g/dL (12.9-16.9)
[2020-05-31] MEDS ORDERED: Dextrose Gel 15 GM/37.5 ML TUBE PO PRN ×2 (11:36)
[2020-05-31] MEDS ORDERED: Naloxone 0.4 MG/ML INJ IVP PRN (11:36)
[2020-05-31] MEDS ORDERED: Ondansetron 4 MG/2 ML VIAL IVP PRN (11:36)
[2020-05-31] MEDS ORDERED: HYDROcodone BIT/Homatropine 5 MG TABLET PO PRN (11:36)
[2020-05-31] MEDS ORDERED: D5% in Water 1,000 ML IVC PRN (11:36)
[2020-05-31] MEDS ORDERED: NON-FORMULARY MEDICATION 1 EACH EACH (Vit C/E/Zn/Coppr/Lutein/Zeaxan [Preservision Areds 2 PO SCH (11:36)
[2020-05-31] MEDS ORDERED: *HR* Promethazine 25 MG/ML VIAL IVP PRN (11:36)
[2020-05-31] MEDS ORDERED: *HR* Dextrose 50 % in Water (Vial) 50 ML VIAL IVP PRN (11:36)
[2020-05-31] MEDS ORDERED: MOM Conc 10 ML UD.LIQ PO PRN (11:36)
[2020-05-31] MEDS ORDERED: Sennosides 8.6 MG TABLET PO PRN (11:36)
[2020-05-31] MEDS: Insulin LISPRO 300 UNITS/3 ML VIAL SQ SCH ×3 (14:15→21:43)
[2020-05-31] MEDS: Ibuprofen 800 MG TABLET PO SCH ×2 (16:13→21:37)
[2020-05-31] MEDS: Ascorbic Acid 500 MG TABLET PO SCH (16:16)
[2020-05-31] MEDS: Multivit/Ca/Min/Fe/FA 1 TAB TABLET PO SCH (16:16)
[2020-05-31] MEDS: Gabapentin 300 MG CAPSULE PO SCH ×3 (16:17→21:37)
[2020-05-31] MEDS: hydroCHLOROthiazide 25 MG TABLET PO SCH (16:18)
[2020-05-31] MEDS: CeFAZolin 2 GM/120 ML BAG IVPB SCH ×2 (16:19→23:54)
[2020-05-31] MEDS: *HR* OxyCODONE Immed Rel 5 MG TABLET PO PRN (17:21)
[2020-05-31] MEDS ORDERED: Vancomycin 1,250 MG/262.5 ML IV.SOLN IVPB ONE (19:00)
[2020-05-31] MEDS: traZODone 50 MG TABLET PO SCH (21:37)
[2020-05-31] MEDS: Latanoprost 2.5 ML BOTTLE BOTH EYES SCH (21:44)
[2020-06-01] MEDS: *HR* OxyCODONE Immed Rel 5 MG TABLET PO PRN ×2 (06:21→16:28)
[2020-06-01] MEDS: Ibuprofen 800 MG TABLET PO SCH ×2 (07:29→19:22)
[2020-06-01] MEDS: Ascorbic Acid 500 MG TABLET PO SCH ×2 (07:30→15:41)
[2020-06-01] MEDS: Gabapentin 300 MG CAPSULE PO SCH ×3 (07:30→19:22)
[2020-06-01] MEDS ORDERED: *HR* Enoxaparin 30 MG/0.3 ML SYRINGE SQ SCH (07:30)
[2020-06-01] MEDS: Multivit/Ca/Min/Fe/FA 1 TAB TABLET PO SCH (07:30)
[2020-06-01] MEDS: hydroCHLOROthiazide 25 MG TABLET PO SCH (07:30)
[2020-06-01] MEDS: Insulin LISPRO 300 UNITS/3 ML VIAL SQ SCH ×4 (07:31→21:48)
[2020-06-01] MEDS ORDERED: Aspirin Enteric Coated 81 MG Tablet PO SCH (08:06)
[2020-06-01] MEDS: Aspirin Enteric Coated 81 MG Tablet PO SCH (11:08)
[2020-06-01 12:05] LABS: Basophils % 0.2 %; Eosinophils # 0.1 K/mcL (0.0-0.6); Eosinophils % 0.8 %; Hematocrit 33.6 % (37.5-50.1); Immature Granulocytes % 0.5 % (0-4); Lymphocytes # 1.8 K/mcL (0.6-4.6); Lymphocytes % 17.7 %; Mean Corpuscular HGB Conc 32.1 g/dL (31.6-35.5); Mean Corpuscular Volume 99.4 fL (83.0-100.0); Mean Platelet Volume 10.6 fL (9.4-12.4); Monocytes # 1.2 K/mcL (0.0-1.3); Monocytes % 11.9 %; Neutrophils # 7.1 K/mcL (1.6-8.9); Platelet Count 188 K/mcL (140-400); Red Blood Count 3.38 M/mcL (4.19-5.50); Red Cell Distribution Width 13.7 % (11.5-14.5); Segmented Neutrophils % 68.9 %; White Blood Count 10.3 K/mcL (4.3-11.1)
[2020-06-01 12:11] LABS: Hemoglobin 10.8 g/dL (12.9-16.9)
[2020-06-01 12:25] LABS: BUN/Creatinine Ratio 22 (6-26); Blood Urea Nitrogen 26 mg/dL (8-23); Calcium 8.4 mg/dL (8.6-10.3); Carbon Dioxide 24 mEq/L (23-29); Chloride 104 mEq/L (98-107); Glucose 107 mg/dL (70-105); Osmolality,Calculated 287 (280-300); Potassium 3.6 mEq/L (3.5-5.1); Sodium 136 mEq/L (136-145); eGFR For African Americans > 60 (> 60); eGFR For Non-African Americans > 60 (> 60)
[2020-06-01] MEDS: traZODone 50 MG TABLET PO SCH (19:22)
[2020-06-01] MEDS: Latanoprost 2.5 ML BOTTLE BOTH EYES SCH (21:48)
[2020-06-02 00:13] VITALS: BP 115/65
[2020-06-02 07:59] LABS: Basophils % 0.2 %; Eosinophils # 0.2 K/mcL (0.0-0.6); Eosinophils % 1.7 %; Hematocrit 30.8 % (37.5-50.1); Hemoglobin 10.1 g/dL (12.9-16.9); Immature Granulocytes % 0.5 % (0-4); Lymphocytes % 19.6 %; Mean Corpuscular HGB Conc 32.8 g/dL (31.6-35.5); Mean Corpuscular Hemoglobin 32.3 pg (28.0-33.3); Mean Corpuscular Volume 98.4 fL (83.0-100.0); Mean Platelet Volume 10.8 fL (9.4-12.4); Monocytes # 1.4 K/mcL (0.0-1.3); Monocytes % 13.5 %; Neutrophils # 6.7 K/mcL (1.6-8.9); Platelet Count 167 K/mcL (140-400); Red Blood Count 3.13 M/mcL (4.19-5.50); Segmented Neutrophils % 64.5 %; White Blood Count 10.4 K/mcL (4.3-11.1)
[2020-06-02 08:12] LABS: BUN/Creatinine Ratio 27 (6-26); Blood Urea Nitrogen 26 mg/dL (8-23); Carbon Dioxide 26 mEq/L (23-29); Chloride 106 mEq/L (98-107); Glucose 108 mg/dL (70-105); Osmolality,Calculated 291 (280-300); Potassium 3.6 mEq/L (3.5-5.1); Sodium 138 mEq/L (136-145); eGFR For African Americans > 60 (> 60); eGFR For Non-African Americans > 60 (> 60)
[2020-06-02] MEDS: Gabapentin 300 MG CAPSULE PO SCH (08:45)
[2020-06-02] MEDS: Ibuprofen 800 MG TABLET PO SCH (08:45)
[2020-06-02] MEDS: Ascorbic Acid 500 MG TABLET PO SCH (08:45)
[2020-06-02] MEDS: hydroCHLOROthiazide 25 MG TABLET PO SCH (08:46)
[2020-06-02] MEDS: Insulin LISPRO 300 UNITS/3 ML VIAL SQ SCH (08:46)
[2020-06-02] MEDS: Aspirin Enteric Coated 81 MG Tablet PO SCH (08:46)
== END 2020-06-02 11:46 | disposition home health service (06) ==
LOC: SAMDAY 06:10 → 3NENU 06:10
PROVIDERS: ADMIT Orthopaedic Surgery; ATTEND Orthopaedic Surgery